=== PATIENT | female | born 2000 | race Caucasian/White ===

== ENCOUNTER → 2021-01-10 15:31 | Outpatient (BNVA) | payer BC, SELFPAY | PROVIDERS: Family Provider Electrodiagnostic Medicine; PCP General Practice; Visit Provider Nurse Practitioner Women's Health | DX: N92.6 Irregular menstruation, unspecified (principal) | CPT/HCPCS: 81025 ==

== ENCOUNTER → 2021-02-11 12:07 | Outpatient (BNVA) | payer BC, SELFPAY | PROVIDERS: Family Provider Electrodiagnostic Medicine; PCP General Practice; Visit Provider Obstetrics & Gynecology | DX: Z34.80 Encounter for supervision of other normal pregnancy, unspecified trimester (principal); Z3A.10 10 weeks gestation of pregnancy | CPT/HCPCS: 80307; 84315; 85027; 86592; 86762; 86787; 86803; 86850; 86900; 87086; 87340; 87806 ==

== ENCOUNTER → 2021-02-19 15:30 | Outpatient (BNVA) | payer BC, SELFPAY | PROVIDERS: Family Provider Electrodiagnostic Medicine; PCP General Practice; Visit Provider Obstetrics & Gynecology | DX: Z34.80 Encounter for supervision of other normal pregnancy, unspecified trimester (principal) | CPT/HCPCS: 84315; 87491; 87591; 88175 ==

== ENCOUNTER 2021-02-26 09:30 | Emergency (ER) | payer BC, SELFPAY ==
[2021-02-26 10:33] VITALS: BP 114/78; PULSE 95; RESP 17; TEMP 37.1; O2SAT 95; BMI 25.9
--- NOTE | 2021-02-26 11:20 | US_ITS ---
WS: [id number] EARLY OBSTETRICAL ULTRASOUND (<14 WEEKS). HISTORY: transabdominal us only 13 weeks, tightness and pressure low abdomen. COMPARISON: None available. Single intrauterine gestational sac is identified. Cardiac activity at 160 BPM. [place]-rump length genna sures 5.8 cm which corresponds to a gestation of 12w2d. Normal-appearing yolk sac and amnion demonstr ated. No subchorionic hemorrhage. No free fluid. Normal size ovaries with no mass. Small corpus luteum associated with the LEFT ovary. Normal vascular ity in each ovary. Cervix is closed measuring 4.2 cm. US/US OB limited 36561 IMPRESSION: 1. Single intrauterine gestation of 12 weeks 2 days with an EDC of 09/08/2021. 2. Normal amount of amniotic fluid. 3. Normal cervix. 4. Normal cardiac activity.
--- NOTE | 2021-02-26 11:23 | ECG_ITS ---
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 Measurements Intervals [place] Rate: 89 P: 65 CO: 148 QRS: 81 QRSD: 89 T: 45 QT: 333 QTc: 406 Interpretive Statements SINUS RHYTHM WITH SINUS ARRHYTHMIA No previous ECG available for comparison Electronically Signed On 02-26-2021 20:25:18 CDT by Catherine Currie M.D. [id number]
--- NOTE | 2021-02-26 11:25 | W.ED.CHESTPA ---
HPI - Chest Pain General: Chief Complaint: Chest Pain Stated Complaint: Chest pain, 13 wk preg. Time Seen by Provider: 02/26/21 11:04 History of Present Illness: HPI narrative: Patient is a 20-year-old G1, P0 at 13 weeks based on prior ultrasound presenting to the emergency room with acute onset of sharp chest pain x4 days. Patient reports sudden onset of left-sided lateral chest pain 3 days ago that has since then involved on the right side. Episode of chest pain lasting for 15 seconds at a time. Patient has noticed noticed multiple episodes today. Patient denies any shortness of breath, exertional chest pain, cough, hemoptysis, recent exposure to Covid contact. Patient denies any family history of VTE, leg swelling, recent immobilization or surgery. Per mom, patient was born with an innocent murmur. Patient has denies any other medical issues in occluding vaginal bleeding, dysuria, flank pain, headache, vision changes or increased vomiting. Review of Systems Narrative: Constitutional: No fever, no chills. HEENT: No vision changes CV: +chest pain, no palpitations PULM: No cough, nodyspnea. GI: No abdominal pain, no N/V/D. : No dysuria MSKEL: No muscle pain SKIN: No new rashes, no lesions. NEURO: No headache, no focal weakness. HEME: No visible bruises PSYCH: Normal mood PFSH ED PFSH: Medical History No pertinent past medical history Denies diabetes, asthma, hypertension, seizures, DVT/PE PCP: Dr. Patel Surgical History History of tonsillectomy age 7 S/P tooth extraction [place] teeth removal Family History Grandmother Diabetes maternal and paternal Stroke paternal Denies family history of Colon cancer Ovarian cancer Clotting disorder Heart disease Hyperlipidemia Breast cancer Anesthesia complication Bleeding disorder Hypertension Uterine cancer Thyroid condition Female Reproductive History: Date of last menstrual period: 11/27/20 Physical Exam Narrative: EXAM NARRATIVE: Head: Atraumatic, normocephalic Eyes: PERRL, EOMI, conjunctiva without injection ENT: Throat without erythema, lesions or exudate, MMM NECK: Supple, trachea midline, no JVD LUNGS: LCTA CV: RRR, S1,S2, no murmurs, rubs, gallops. 2+ peripheral pulses in UEs ABDOMEN: Soft, nontender, nondistended, BS x4, no rigidity, no guarding, no rebound EXTREMITY: Normal ROM, no pitting edema, no calf tenderness to palpation SKIN: No rash or erythema NEURO: Awake and alert. No focal motor deficits. PSYCH: Normal mood and affect. Course Vital Signs: Vital signs: Vital Signs Temperature 98.8 F 02/26/21 10:33 Pulse Rate 88 02/26/21 14:44 Respiratory Rate 16 02/26/21 14:44 Blood Pressure 110/82 02/26/21 14:44 Pulse Oximetry 98 02/26/21 14:44 MDM - Chest Pain MDM Narrative: Medical decision making narrative: ED Course: [21]yo at 13 weeks by US presenting to the ED with evaluation of new onset sharp chest pain lasting for a fwe seconds at a time x 4 days. HDS, pulse 2+ radially bilaterally, no signs of fluid overload, AAOx3, neuro exam intact. Given History and Exam today I have no suspicion for ACS, Pneumothorax, Pneumonia, Pulmonary Embolus, Tamponade, Aortic Dissection or other emergent problems as a cause for this presentation. Given hx and sudden onset of sharp chest pain, will evaluate for PE with YEARS alogrithm Workup: ECG, CXR, CBC, BMP, Troponin, Dimer Interventions: Tylenol, IVF EKG NSR, RR of 89, CO/QRs/QT wnl, no ST-T wave changes, no ectopy D-dimer within normal limits. Chest x-ray not showing signs of acute pathologies. At the present time, I doubt this is ACS, aortic dissection, PE, C related cardiomyopathy, or other issues. UA 4+ bacteria with 10-15 WBC, will treat as complicated UTI during Rx tylenol and cephalexin BID x 10 days Position: Discharged. Patient is given strict return precaution for any worsening pain, hemoptysis, focal neurological deficit, new weakness, new or concerning complaints. Lab Data: Labs: Lab Results 02/26/21 02/26/21 02/26/21 Range/Units 11:48 11:48 11:48 WBC 5.3 (4.0-10.0) 10^3/ uL RBC 4.95 (4.1-5.3) 10^6/u L Hgb 13.3 (11.5-15.3) g/dL Hct 41.3 (37.0-47.0) % MCV 83.4 (81-99) fL MCH 26.9 L (28.0-34.0) pg MCHC 32.2 (30.0-36.0) g/dL RDW 13.0 (12.1-15.1) % Plt Count 310 (130-400) 10^3/c mm MPV 10.7 H (7.4-10.4) fL Neut % (Auto) 72.7 % Lymph % (Auto) 22.1 % [place] % (Auto) 4.0 % Eos % (Auto) 0.4 % Baso % (Auto) 0.4 % Neut # (Auto) 3.83 (1.8-7.7) 10^3/u L Lymph # (Auto) 1.2 (0.8-4.8) 10^3/u L [place] # (Auto) 0.2 (0.2-0.9) 10^3/u L Eos # (Auto) 0.0 (0.0-0.8) 10^3/u L Baso # (Auto) 0.0 (0.0-0.1) 10^3/u L Nucleated RBC % (a uto) 0 % Nucleated RBCs # 0.0 /100WBC D-Dimer 0.38 (0-0.59) ug/mIFE U Sodium 134 L (136-145) mmol/L Potassium 3.9 (3.5-5.1) mmol/L Chloride 100 (98-107) mmol/L Carbon Dioxide 20 L (22-29) mmol/L Anion Gap 17.9 (5-19) BUN 5 L (6-20) mg/dL Creatinine 0.4 L (0.5-0.9) mg/dL GFR Calculation 199.6 H (90-130) mL/min Glucose 79 (65-115) mg/dL Calculated Osmolal ity 274 L (285-295) mOsm/k g Calcium 9.3 (8.5-10.5) mg/dL Total Bilirubin 0.4 (0.15-1.2) mg/dL AST 15 (0-32) U/L ALT 26 (0-33) U/L Alkaline Phosphata se 53 (35-105) IU/L Troponin T Gen 5 n g/L (0-10) ng/L Total Protein 6.7 (6.6-8.7) g/dL Albumin 4.4 (3.5-5.2) g/dL Globulin 2.3 (1.3-4.6) g/dL Lipase 37 (13-60) U/L Ser , [place] 584[address].00 mIU/mL Urine Color (Yellow) Urine Appearance (CLEAR) Urine pH (5-7) Ur Specific Gravit y (1.005-1.030) Urine Protein (Negative) Urine Glucose (UA) (Normal) Urine Ketones (Negative) Urine Blood (Negative) Urine Nitrate (Negative) Urine Bilirubin (Negative) Urine Urobilinogen (Negative) mg/dL Ur Leukocyte Lena ase (Negative) Urine RBC (0-2) /hpf Urine WBC (0-5) /hpf Ur Squamous Epith Cells (0-5) /hpf Amorphous Sediment Urine Bacteria (NONE) /hpf Urine Mucus /hpf 02/26/21 02/26/21 Range/Units 11:48 12:45 WBC (4.0-10.0) 10^3/ uL RBC (4.1-5.3) 10^6/u L Hgb (11.5-15.3) g/dL Hct (37.0-47.0) % MCV (81-99) fL MCH (28.0-34.0) pg MCHC (30.0-36.0) g/dL RDW (12.1-15.1) % Plt Count (130-400) 10^3/c mm MPV (7.4-10.4) fL Neut % (Auto) % Lymph % (Auto) % [place] % (Auto) % Eos % (Auto) % Baso % (Auto) % Neut # (Auto) (1.8-7.7) 10^3/u L Lymph # (Auto) (0.8-4.8) 10^3/u L [place] # (Auto) (0.2-0.9) 10^3/u L Eos # (Auto) (0.0-0.8) 10^3/u L Baso # (Auto) (0.0-0.1) 10^3/u L Nucleated RBC % (a uto) % Nucleated RBCs # /100WBC D-Dimer (0-0.59) ug/mIFE U Sodium (136-145) mmol/L Potassium (3.5-5.1) mmol/L Chloride (98-107) mmol/L Carbon Dioxide (22-29) mmol/L Anion Gap (5-19) BUN (6-20) mg/dL Creatinine (0.5-0.9) mg/dL GFR Calculation (90-130) mL/min Glucose (65-115) mg/dL Calculated Osmolal ity (285-295) mOsm/k g Calcium (8.5-10.5) mg/dL Total Bilirubin (0.15-1.2) mg/dL AST (0-32) U/L ALT (0-33) U/L Alkaline Phosphata se (35-105) IU/L Troponin T Gen 5 n g/L 6 (0-10) ng/L Total Protein (6.6-8.7) g/dL Albumin (3.5-5.2) g/dL Globulin (1.3-4.6) g/dL Lipase (13-60) U/L Ser , [place] i-Qnt mIU/mL Urine Color Yellow (Yellow) Urine Appearance Cloudy (CLEAR) Urine pH 6 (5-7) Ur Specific Gravit y 1.020 (1.005-1.030) Urine Protein Neg (Negative) Urine Glucose (UA) Norm (Normal) Urine Ketones 2+ H (Negative) Urine Blood Neg (Negative) Urine Nitrate Negative (Negative) Urine Bilirubin Neg (Negative) Urine Urobilinogen Norm (Negative) mg/dL Ur Leukocyte [place] 2+ H (Negative) Urine RBC 0-4 H (0-2) /hpf Urine WBC 10-15 H (0-5) /hpf Ur Squamous Epith Cells 0-4 H (0-5) /hpf Amorphous Sediment Not Reportable Urine Bacteria 4+ H (NONE) /hpf Urine Mucus 2+ /hpf Imaging Data^: CXR: Radiologist's impression: [email or web address] [address]XGao ReportSigned Patient: Nata Morton #: [id number]: 2000Acct#:[id number]/Sex: Date: 02/26/21Loc: ERRoom/Bed:Attending Dr: Ordering Provider/Ordering MD: Tracy Muñoz MD Date of Service: 02/26/21 Procedure(s): XR chest 2V* 12831 Accession Number(s): [id number] Report Number: [id number] WS: [id number] Chest 2 views, 02/26/2021 Clinical Data: rule out pna Comparison: None. Findings: No nodules, masses or effusions are seen. The heart is normal. The pulmonary vascularity is not increased. No pneumonia or pneumothorax is seen. XR/XR chest 2V* 34349 Impression: Negative chest. Dictated By:Winsome Moon MDSigned By:Winsome Moon MDSigned Date/Time:02/26/21 1312DD/ 1312 [facility], [place] [address]Vhzvielnck ReportSigned Patient: Nata Morton #: [id number]: 2000Acct#:[id number]/Sex: Date: 02/26/21Loc: ERRoom/Bed:Attending Dr: Ordering Provider/Ordering MD: Tracy Muñoz MD Date of Service: 02/26/21 Procedure(s): US OB limited 78341 Accession Number(s): [id number] Report Number: [id number] Other Imaging: Radiologist's impression: [facility], [place] [address]QRpk ReportSigned Patient: Nata Morton #: [id number]: 2000Acct#:[id number]/Sex: Date: 02/26/21Loc: ERRoom/Bed:Attending Dr: Ordering Provider/Ordering MD: Tracy Muñoz MD Date of Service: 02/26/21 Procedure(s): XR chest 2V* 11748 Accession Number(s): [id number] Report Number: [id number] WS: [id number] Chest 2 views, 02/26/2021 Clinical Data: rule out pna Comparison: None. Findings: No nodules, masses or effusions are seen. The heart is normal. The pulmonary vascularity is not increased. No pneumonia or pneumothorax is seen. XR/XR chest 2V* 60532 Impression: Negative chest. Dictated By:Winsome Moon MDSigned By:Winsome Moon MDSigned Date/Time:02/26/21 1312DD/ [address] [address]Vpyrspcmqe ReportSigned Patient: Nata Morton #: [id number]: 2000Acct#:[id number]/Sex: 20 / FADM Date: 02/26/21Loc: ERRoo/Bed:Attending Dr: Ordering Provider/Ordering MD: Tracy Muñoz MD Date of Service: 02/26/21 Procedure(s): US OB limited 41170 Accession Number(s): [id number] Report Number: [id number] Discharge Plan Discharge Patient Disposition: Home Clinical Impression: Chest pain, UTI (urinary tract infection) during Condition: Stable Prescriptions: New acetaminophen 500 mg tablet 500 mg PO Q6H PRN (Reason: ch) 5 Days Qty: 20 RF: 0 cephalexin 500 mg capsule 500 mg PO BID 10 Days Qty: 20 RF: 0 No Action promethazine 25 mg tablet 25 mg PO Q6H PRN (Reason: nausea and vomiting) Qty: 30 RF: 0 Gummies 400 mcg-35 mg- 25 mg-5 mg tablet,chewable 1 tab PO DAILY RF: 0 Discharge Orders: Discharge ED (Routine); Ordered 02/26/21 Ordered By: Tracy Muñoz Referrals: Denis Patel DO [Primary Care Provider] - Discharge Diet: Advance as tolerated Discharge Activity: Resume usual activity Patient Instructions: Chest Pain (ED) Coding Level of Care Code ED Compliance Professional for Chg Jennifer
[2021-02-26 12:06] LABS: Basophils % 0.4 %; Eosinophils % 0.4 %; Hematocrit 41.3 % (37.0-47.0); Hemoglobin 13.3 g/dL (11.5-15.3); Lymphocytes # 1.2 10^3/uL (0.8-4.8); Lymphocytes % 22.1 %; Mean Corpuscular HGB Conc 32.2 g/dL (30.0-36.0); Mean Corpuscular Hemoglobin 26.9 pg (28.0-34.0); Mean Corpuscular Volume 83.4 fL (81-99); Mean Platelet Volume 10.7 fL (7.4-10.4); Monocytes # 0.2 10^3/uL (0.2-0.9); Neutrophils # 3.83 10^3/uL (1.8-7.7); Neutrophils % 72.7 %; Nucleated Red Blood Cells % 0 %; Platelet Count 310 10^3/cmm (130-400); Red Blood Count 4.95 10^6/uL (4.1-5.3); White Blood Count 5.3 10^3/uL (4.0-10.0)
[2021-02-26 12:22] LABS: D Dimer 0.38 ug/mIFEU (0-0.59)
[2021-02-26] MEDS: acetaminophen 500 mg Tablet PO (12:30)
[2021-02-26] MEDS: sodium chloride 0.9% 500 ML IV (12:30)
--- NOTE | 2021-02-26 12:42 | XR_ITS ---
WS: [id number] Chest 2 views, 02/26/2021 Clinical Data: rule out pna Comparison: None. Findings: No nodules, masses or effusions are seen. The heart is normal. The pulmonary vascularity is not increased. No pneumonia or pneumothorax is seen. XR/XR chest 2V* 66545 Impression: Negative chest.
[2021-02-26 12:45] LABS: Troponin T (5th) Once 6 ng/L (0-10)
[2021-02-26 12:50] LABS: Alanine Aminotransferase 26 U/L (0-33); Albumin Level 4.4 g/dL (3.5-5.2); Alkaline Phosphatase 53 IU/L (35-105); Anion Gap 17.9 (5-19); Aspartate Amino Transferase 15 U/L (0-32); Blood Urea Nitrogen 5 mg/dL (6-20); Calcium 9.3 mg/dL (8.5-10.5); Carbon Dioxide 20 mmol/L (22-29); Chloride 100 mmol/L (98-107); Globulin 2.3 g/dL (1.3-4.6); Glomerular Filtration Rate 199.6 mL/min (90-130); Glucose 79 mg/dL (65-115); Lipase 37 U/L (13-60); Osmolality Calculated 274 mOsm/kg (285-295); Potassium 3.9 mmol/L (3.5-5.1); Sodium 134 mmol/L (136-145); Total Bilirubin 0.4 mg/dL (0.15-1.2); Total Protein 6.7 g/dL (6.6-8.7)
[2021-02-26 12:58] LABS: Add Urine Microscopic? YES; Bilirubin Urine Neg (Negative); Blood Urine Neg (Negative); Glucose Urine UA Norm (Normal); Ketones Urine 2+ (Negative); Leukocyte Esterase Urine 2+ (Negative); Nitrate Urine Negative (Negative); Protein Urine Neg (Negative); Urine Appearance Cloudy (CLEAR); Urine Color Yellow (Yellow); Urobilinogen Urine Norm (Negative); pH Urine 6 (5-7)
[2021-02-26 13:08] LABS: Add Urine Culture? Yes; Bacteria Urine 4+ /hpf; Mucus Urine 2+ /hpf; RBC Urine 0-4 /hpf (0-2); Squamous Epithelial Cell Urine 0-4 /hpf (0-5)
[2021-02-26 14:44] VITALS: BP 110/82; PULSE 88; RESP 16; O2SAT 98
== END 2021-02-26 14:45 | disposition home or self-care (01) ==
PROVIDERS: Emergency Provider Emergency Medicine; PCP Electrodiagnostic Medicine
DX: O26.891 Other specified pregnancy related conditions, first trimester (principal); R07.9 Chest pain, unspecified; O23.41 Unspecified infection of urinary tract in pregnancy, first trimester; Z3A.13 13 weeks gestation of pregnancy
CPT/HCPCS: 71046; 76815; 80053; 81001; 83690; 84484; 84702; 85025; 85378; 87086; 93005; 96360; 99283; J7040

== ENCOUNTER → 2021-04-11 10:40 | Outpatient (BNVA) | payer SELFPAY | PROVIDERS: PCP Electrodiagnostic Medicine; Visit Provider Obstetrics & Gynecology | DX: R39.15 Urgency of urination (principal); R39.89 Other symptoms and signs involving the genitourinary system | CPT/HCPCS: 81000; 87086 ==

== ENCOUNTER → 2021-06-13 12:08 | Outpatient (BNVA) | payer BC, SELFPAY | PROVIDERS: PCP Electrodiagnostic Medicine; Visit Provider Nurse Practitioner Women's Health | DX: Z34.80 Encounter for supervision of other normal pregnancy, unspecified trimester (principal) | CPT/HCPCS: 82950; 84315; 85027 ==

== ENCOUNTER → 2021-08-06 10:44 | Outpatient (BNVA) | payer BC, SELFPAY | PROVIDERS: PCP Electrodiagnostic Medicine; Visit Provider Obstetrics & Gynecology | DX: Z34.90 Encounter for supervision of normal pregnancy, unspecified, unspecified trimester (principal) | CPT/HCPCS: 84315; 87081 ==

== ENCOUNTER 2021-08-10 04:56 | Outpatient (CLI) | payer BC, SELFPAY ==
[2021-08-10] VITALS (10 sets, daily range): BP systolic 121–129; BP diastolic 82–93; PULSE 110–151; RESP 16; TEMP 36.7
[2021-08-10] MEDS: acetaminophen 325 mg Tablet 650 MG PO (05:51)
== END 2021-08-10 07:38 | disposition home or self-care (01) ==
LOC: OPOB 04:59 → OBGYN 04:59
PROVIDERS: PCP Electrodiagnostic Medicine; Visit Provider Obstetrics & Gynecology
DX: O26.899 Other specified pregnancy related conditions, unspecified trimester (principal); Z3A.00 Weeks of gestation of pregnancy not specified; R10.2 Pelvic and perineal pain
CPT/HCPCS: 59025; 99211

== ENCOUNTER 2021-08-10 14:07 | Outpatient (CLI) | payer BC, SELFPAY ==
[2021-08-10] VITALS (36 sets, daily range): BP systolic 115–143; BP diastolic 70–83; PULSE 123–161; RESP 16; TEMP 37–37.8; O2SAT 96–100; BMI 30.2
[2021-08-10] MEDS: lactated ringers 1,000 ML 999 ML IV (14:43)
[2021-08-10 14:50] LABS: Add Urine Culture? No; Bacteria Urine TRACE /hpf; Bilirubin Urine Neg (Negative); Blood Urine Neg (Negative); Glucose Urine UA Norm (Normal); Ketones Urine 2+ (Negative); Leukocyte Esterase Urine Negative (Negative); Nitrate Urine Negative (Negative); Protein Urine Neg (Negative); Squamous Epithelial Cell Urine 0-4 /hpf (0-5); Urine Appearance Clear (CLEAR); Urine Color Yellow (Yellow); Urobilinogen Urine Norm (Negative); WBC Urine RARE /hpf (0-5); pH Urine 7 (5-7)
[2021-08-10] MEDS: acetaminophen 325 mg Tablet 650 MG PO (15:12)
[2021-08-10 16:28] LABS: Adenovirus Not Detected (NOT DETECT); Chlamydia Pneumoniae Not Detected (NOT DETECT); Coronavirus 229E,HKU1,NL63,OC4 Not Detected (NOT DETECT); Human Metapneumovirus Not Detected (NOT DETECT); Human Rhinovirus/Enterovirus Not Detected (NOT DETECT); Influenza A Not Detected (NOT DETECT); Influenza A H1 Not Detected (NOT DETECT); Influenza A H1-2009 Not Detected (NOT DETECT); Influenza A H3 Not Detected (NOT DETECT); Influenza B Not Detected (NOT DETECT); Mycoplasma Pneumoniae Not Detected (NOT DETECT); Parainfluenza Virus Type 1 Not Detected (NOT DETECT); Parainfluenza Virus Type 2 Not Detected (NOT DETECT); Parainfluenza Virus Type 3 Not Detected (NOT DETECT); Parainfluenza Virus Type 4 Not Detected (NOT DETECT); Respiratory Syncytial Virus A Not Detected (NOT DETECT); Respiratory Syncytial Virus B Not Detected (NOT DETECT); SARS-COV-2 Detected (NOT DETECT)
== END 2021-08-10 17:30 | disposition home or self-care (01) ==
LOC: OPOB 14:07 → OBGYN 14:08
PROVIDERS: PCP Electrodiagnostic Medicine; Visit Provider Obstetrics & Gynecology
DX: O26.899 Other specified pregnancy related conditions, unspecified trimester (principal); Z3A.00 Weeks of gestation of pregnancy not specified; R50.9 Fever, unspecified; R10.9 Unspecified abdominal pain
CPT/HCPCS: 59025; 81001; 87635; 99211

== ENCOUNTER 2021-09-02 05:38 | Inpatient (IN) | payer BC, SELFPAY ==
[2021-09-01] VITALS (21 sets, daily range): BP systolic 120–132; BP diastolic 72–91; PULSE 71–107; TEMP 35.9–36.9; O2SAT 95–97; BMI 30.2
[2021-09-01] MEDS: lactated ringers 1,000 ML 999 ML IV (19:47)
[2021-09-01 20:10] LABS: Basophils % 0.1 %; Eosinophils % 0.1 %; Hematocrit 34.7 % (37.0-47.0); Hemoglobin 11.6 g/dL (11.5-15.3); Lymphocytes # 1.7 10^3/uL (0.8-4.8); Lymphocytes % 22.9 %; Mean Corpuscular HGB Conc 33.4 g/dL (30.0-36.0); Mean Corpuscular Hemoglobin 28.2 pg (28.0-34.0); Mean Corpuscular Volume 84.4 fl (81-99); Mean Platelet Volume 13.2 fL (7.4-10.4); Monocytes # 0.3 10^3/uL (0.2-0.9); Monocytes % 4.1 %; Neutrophils # 5.42 10^3/uL (1.8-7.7); Neutrophils % 72.3 %; Nucleated Red Blood Cells % 0 %; Platelet Count 228 10^3/cmm (130-400); Red Blood Count 4.11 10^6/uL (4.1-5.3); Red Cell Distribution Width 13.7 % (12.1-15.1); White Blood Count 7.5 10^3/uL (4.0-10.0)
[2021-09-01] MEDS: dextrose 5%-lactated ringers 1,000 ML 125 ML IV (20:42)
[2021-09-01] MEDS: miSOPROStol 100 mcg tablet 25 MCG VAGINAL (21:00)
[2021-09-02] VITALS (87 sets, daily range): BP systolic 99–164; BP diastolic 55–131; PULSE 61–113; RESP 16–18; TEMP 35.8–36.8; O2SAT 94–98
--- NOTE | 2021-09-02 06:20 | P.ANESASSM_ITS ---
Pre-Anesthetic Assessment Height/Weight: Height 1.57 m Weight 74.843 kg Temp Pulse BP Pulse Ox 97.2 F L 78 153/85 97 09/02/21 04:26 09/02/21 06:00 09/02/21 06:00 09/01/21 19:37 Preop Diagnosis: labpr pain epidural Familial anesthetic complications: none Was Beta Rhoda taken within 24 hours: N/A Was Clonidine taken within 24 hours: N/A Social No alcohol and No tobacco Exam alert, oriented x 3, clear to auscultation bilaterally and regular rate & rhythm Airway Submandibular: within normal limits Cervical ROM: within normal limits Mallampati: Class II Dentition: full Pulmonary Asthma (as a child but has resolved) CV/HEM Murmur (as a child that has resolved) None reported Hepatic None reported GI Gastroesophageal Reflux Disease Metabolic None reported Musc/skel Scoliosis (some scoliosis per patient as a child but has not been addressed since then) Neuropsych None reported Anesthetic Plan ASA status: 2 Anesthesia: Regional (specify below) Risk of > 500 ml blood loss (7ml/kg in children): No Medications/Allergies Allergies Allergy/AdvReac Type Severity Reaction Status Date / Time No Known Allergies Allergy Verified 08/27/21 10:27 Current Medications Generic Name Dose Route Start Last Admin Trade Name Freq PRN Reason Stop Dose Admin Dextrose/Lactated Ringer's 1,000 mls @ 125 mls/hr 09/01/21 19:27 09/01/21 20:42 Dextrose 5%-Lactated Ringers IV 125 mls/hr .Q8H PRN Administration [facility] Medical History No pertinent past medical history Denies diabetes, asthma, hypertension, seizures, DVT/PE PCP: Dr. Patel Surgical History History of tonsillectomy age 7 S/P tooth extraction [place] teeth removal Family History Grandmother Diabetes maternal and paternal Stroke paternal Denies family history of Colon cancer Ovarian cancer Clotting disorder Heart disease Hyperlipidemia Breast cancer Anesthesia complication Bleeding disorder Hypertension Uterine cancer Thyroid condition Female Reproductive History Date of last menstrual period: 11/28/20 : 2 Data Anesthesia : 09/01/21 19:00 Short CBC 09/01/21 Range/Units 19:00 WBC 7.5 (4.0-10.0) 10^3/uL Hgb 11.6 (11.5-15.3) g/dL Hct 34.7 L (37.0-47.0) % MCV 84.4 (81-99) fl Plt Count 228 (130-400) 10^3/cmm Neut % (Auto) 72.3 % Neut # (Auto) 5.42 (1.8-7.7) 10^3/uL Cardiac Studies: No Data to Display
--- NOTE | 2021-09-02 06:40 | PM.OPHPUD ---
Labor & Delivery H&P Update Date of Procedure: September 02, 2021 Date H&P Performed: 08/27/21 H&P update information: I have reviewed H&P completed within last 30 days, I have examined patient prior to procedure and Changes to prior documentation as noted here Changes to previous documentation: Patient is 2 cm 60% and -3 station Admission Diagnosis: Preop diagnosis: labpr pain
--- NOTE | 2021-09-02 06:53 | ANES.PROC ---
Anesthesia Procedures Procedure/Date: 09/02/21 epidural Procedure Narrative: epidural complete, bolus given, epidural pump initiated with GENERAL INTERNAL MEDICINE PHYSICIAN education given, vitals taken during procedure using OBIX system and satisfactory throughout, patient admits to decrease pain, report of procedure to OB RN Epidural: Time Out Performed: Yes Consents Signed: Procedure Consent Consent: requested by attending/covering physician, from patient, risks and benefits reviewed and patient agrees to proceed Lumbar Level: L3-L4 Epidural position: sitting Epidural procedure: sterile prep of area, 1% lidocaine to numb the area (3 mL), 18 g needle, negative for paresthesia passed, neg for paresthesia, test dose given, 1.5% xylocaine 1:200k epi (5 mL), 0.2% Ropivacaine bolus ml (5 mL), placed PCEA, no systemic response, sterile dressing applied, L.U.D. no apparent complications and 0.2% Ropiavacaine @ mls/hr (13 mL/hr)
[2021-09-02] MEDS: oxytocin 30 UNIT/500 ML BAG IV (07:49)
[2021-09-02] MEDS: dextrose 5%-lactated ringers 1,000 ML 125 ML IV (09:15)
--- NOTE | 2021-09-02 13:42 | P.PCNOB_ITS ---
Delivery Note: Date of delivery: September 02, 2021 - PRE-DELIVERY DIAGNOSIS: 20-year-old 2 para 0-0-1-0 at 39 weeks and 4 days gestation elective induction of labor for term GBS negative COVID in the at 34 weeks Varicella nonimmune---declines vaccinations POST-DELIVERY DIAGNOSIS: Vaginal delivery on 09/02/2021 PROCEDURE: Vaginal delivery on 09/02/2021 ANESTHESIA: Epidural anesthesia DELIVERING PHYSICIAN: Daija Bland FACOG PRE-DELIVERY COURSE: Ms. Morton is a 20-year-old 2 para 0-0-1-0 at 39 weeks and 4 days gestation who presented to labor and delivery on 09/01/2021 for scheduled elective induction of labor. She is overall doing well. She denies new complaints. GBS was negative. On examination she was noted to be 1 cm, 70% and -2 station. She had occasional contractions and did not feel this and had a category 1 tracing. Induction was started with Cytotec placed at 9 PM. At 1 AM 4 hours later she was having irregular contractions but felt that they were growing pretty uncomfortable and as a result she was just observed. She had made no cervical change after the 4 hours of Cytotec. She was observed for the next 4 hours and grew increasingly uncomfortable and at about 5 AM on exam she was noted to be 2 to 3 cm, 70% and -2 station. She desired placement of an epidural. On exam at 5:30 AM she was noted to be 3 to 4 cm, 60% and -2 station with a head well applied with contractions every 2 to 5 minutes and a category 1 tracing. Artificial rupture of membranes was performed at this time with clear fluid. She received the epidural was comfortable after this. She remained at 3 cm and so Pitocin was started however tracing became category 2 and Pitocin was stopped after reaching a maximum of 6 mIU. She remained at 3 cm until about 10:30 AM and progressed to 5 cm. She then made rapid cervical change and was 8 cm at 10:55 AM and anterior lip at 11:20 AM and fully dilated at 11:25 AM. She was feeling a lot of pressure. During this time of rapid cervical change she had some late decelerations and during this time she was given oxygen position changes IV fluid bolus and Pitocin was turned off. Once she reached 8 cm tracing returned to been category 1. She was then set up in lithotomy position ready to push. DELIVERY NOTE: She was set up in lithotomy position and was pushing effectively. She was noted to be +3 station and continued pushing well. The head delivered in MIL position, no nuchal cord was present. The shoulders and rest of the body followed with her next push. The baby's mouth and nose were suctioned and the baby was placed on the mother's belly. Once cord pulsations stopped the cord was clamped and cut. The placenta delivered spontaneously intact with membranes and was discarded. The fundus was noted to be firm and well contracted. The vagina and cervix were inspected and no cervical or sulcal lacerations were noted. The perineum showed a first-degree perineal laceration which was repaired with 3-0 Vicryl in a continuous interlocking fashion. Good hemostasis and reapproximation was obtained. Baby delta, Sanchez born at 1:04 PM on 09/02/2021 with 9/9, weighing 6 pounds 8 ounces, 2940 g, 20 inches long. Placenta was delivered spontaneously intact with membranes at 1:10 PM.. Cotyledons were intact , centrally inserted umbilical cord with 3 vessels noted. Estimated blood loss 250 mL. Complications-none, both baby and mother were left to recover in a stable condition This documentation was created by [employer] computer equipment repairer software (known for inherent computer equipment repairer error). Every effort was made to assure accuracy of computer equipment repairer. Any obvious errors or omissions should be clarified with the author of the document. History History History 2 Term 1 Miscarriages/Ectopic 1 0 Living Children 1 Other History: G2P 1011 SAB x 1 X 1 1--->2015, Early miscarriage at age 14 with a positive home test. 2---> 09/02/2021---> full-term vaginal delivery of a baby boy,(Sanchez), weighing [address] Bland [place] [facility] [place] 12 are induction at 39 weeks and 5 days gestation. First-degree perineal tear. No complications Coding Level of Care Code Acute Administrative Office Assistant for [facility] Jennifer
--- NOTE | 2021-09-02 15:31 | PC.NURSE ---
1515 PT UP TO BATHROOM, INSTRUCTED ON PERICARE THEN AMBULATED TO OB9, ORIENTED TO ROOM, CALL LIGHT SYSTEM AND BED CONTROLS. WILL GO OVER PP PACK AFTER MAKENZIE CARMONA RN IS DONE HELPING HER WITH .
[2021-09-02] MEDS: lanolin oint 7 gm 1 APPLIC TOPICAL (15:37)
[2021-09-02] MEDS: benzocaine-menthol 78 gm Canister 1 SPRAY TOPICAL (15:37)
[2021-09-02] MEDS: ibuprofen 800 mg tablet PO ×2 (15:38→20:39)
[2021-09-02] MEDS: docusate sodium 100 mg Capsule PO (20:39)
[2021-09-03 01:23] LABS: Hematocrit 30.7 % (37.0-47.0); Hemoglobin 10.1 g/dL (11.5-15.3); Mean Corpuscular HGB Conc 32.9 g/dL (30.0-36.0); Mean Platelet Volume 12.2 fL (7.4-10.4); Platelet Count 166 10^3/cmm (130-400); Red Blood Count 3.61 10^6/uL (4.1-5.3); Red Cell Distribution Width 14.1 % (12.1-15.1); White Blood Count 12.5 10^3/uL (4.0-10.0)
[2021-09-03 04:16] VITALS: BP 110/65; PULSE 73; RESP 16; O2SAT 96
[2021-09-03] MEDS: docusate sodium 100 mg Capsule PO (08:38)
[2021-09-03] MEDS: ibuprofen 800 mg tablet PO (08:38)
[2021-09-03] MEDS: prenatal vitamin Capsule 1 CAP PO (08:38)
[2021-09-03 11:05] VITALS: BP 126/76; PULSE 74; RESP 16; TEMP 36.6; O2SAT 98
--- NOTE | 2021-09-03 12:20 | PM.OBGYDC ---
Discharge Providers ENVIRONMENTAL PROJECT MANAGER Date of Admission: 09/02/21 05:38 Date of Discharge: 09/03/21 Attending Provider at Admission: Daija James MD Attending Provider at Discharge: Daija James MD PRE-DELIVERY DIAGNOSIS: 20-year-old 2 para 0-0-1-0 at 39 weeks and 4 days gestation elective induction of labor for term GBS negative COVID in the at 34 weeks Varicella nonimmune---declines vaccinations POST-DELIVERY DIAGNOSIS: Vaginal delivery on 09/02/2021 PROCEDURE: Vaginal delivery on 09/02/2021 ANESTHESIA: Epidural anesthesia DELIVERING PHYSICIAN: Daija Bland FACOG PRE-DELIVERY COURSE: Ms. Morton is a 20-year-old 2 para 0-0-1-0 at 39 weeks and 4 days gestation who presented to labor and delivery on 09/01/2021 for scheduled elective induction of labor.? She is overall doing well.? She denies new complaints.? GBS was negative.? On examination she was noted to be 1 cm, 70% and -2 station.? She had occasional contractions and did not feel this and had a category 1 tracing.? Induction was started with Cytotec placed at 9 PM.? At 1 AM 4 hours later she was having irregular contractions but felt that they were growing pretty uncomfortable and as a result she was just observed.? She had made no cervical change after the 4 hours of Cytotec.? She was observed for the next 4 hours and grew increasingly uncomfortable and at about 5 AM on exam she was noted to be 2 to 3 cm, 70% and -2 station.? She desired placement of an epidural.? On exam at 5:30 AM she was noted to be 3 to 4 cm, 60% and -2 station with a head well applied with contractions every 2 to 5 minutes and a category 1 tracing.? Artificial rupture of membranes was performed at this time with clear fluid.? She received the epidural was comfortable after this.? She remained at 3 cm and so Pitocin was started however tracing became category 2 and Pitocin was stopped after reaching a maximum of 6 mIU.? She remained at 3 cm until about 10:30 AM and progressed to 5 cm.? She then made rapid cervical change and was 8 cm at 10:55 AM and anterior lip at 11:20 AM and fully dilated at 11:25 AM.? She was feeling a lot of pressure.? During this time of rapid cervical change she had some late decelerations and during this time she was given oxygen position changes IV fluid bolus and Pitocin was turned off.? Once she reached 8 cm tracing returned to been category 1.? She was then set up in lithotomy position ready to push. DELIVERY? NOTE: She was set up in lithotomy position and was pushing effectively. She was noted to be? +3 station and continued pushing well. The head delivered in MIL position, no nuchal cord was present. The shoulders and rest of the body followed with her next push. The baby's mouth and nose were suctioned and the baby was placed on the mother's belly.? Once cord pulsations stopped the cord was clamped and cut.? The placenta delivered spontaneously intact with membranes and was discarded. The fundus was noted to be firm and well contracted. The vagina and cervix were inspected and no cervical or sulcal lacerations were noted.? The perineum showed a first-degree perineal laceration which was repaired with 3-0 Vicryl in a continuous interlocking fashion.? Good hemostasis and reapproximation was obtained. Baby boy, Sanchez born at 1:04 PM on 09/02/2021 with 9/9, weighing 6 pounds 8 ounces, 2940 g, 20 inches long. Placenta was delivered spontaneously intact with membranes at 1:10 PM.. Cotyledons were intact , centrally inserted umbilical cord with 3 vessels noted. Estimated blood loss 250 mL. Complications-none, both baby and mother were left to recover in a stable condition HOSPITAL COURSE: She underwent an uncomplicated vaginal delivery on 09/02/2021. She did well on day 0 and was ambulating well, tolerating regular diet, voiding freely, passing flatus. She was breast-feeding without difficulty and bonding well with her son. Circumcision was performed on him by Dr. Acharya. Pain was well-controlled with by mouth pain medication. She denied nausea, vomiting, fever, chills, shortness of breath, leg pain. She had moderate vaginal bleeding. On day # 1 she continued to do well with stable vital signs and stable hemoglobin at 10.1. She was discharged home on day 1 in a stable condition, as she desired early discharge. Warning signs for endometritis, mastitis, DVT/PE were reviewed with her. Post delivery activity restrictions were also reviewed with her at all her questions were answered to her satisfaction. She plans on using natural methods for contraception. EXAM AT DISCHARGE: Gen.: No acute distress Heart: S1-S2 heard, regular rate and rhythm Lungs: Clear to auscultation bilaterally Abdomen: Soft, fundus firm below umbilicus, Legs: No calf tenderness, trace bilateral pitting pedal edema. CONDITION AT DISCHARGE: Stable This documentation was created by [employer] astronomy teacher software (known for inherent astronomy teacher error). Every effort was made to assure accuracy of astronomy teacher. Any obvious errors or omissions should be clarified with the author of the document. Primary Care Provider: Denis Patel DO Reason for Visit Reason for Visit: INDUCTION Information Peripartum Data: Delivery Method: Vaginal Physical Exam Urinary Catheter Management: Smith: Cath Placed During This Visit: yes Urinary Catheter Date of Insertion: 09/02/21 Urinary Catheter Time of Insertion: 07:25 History History History 2 Term 1 Miscarriages/Ectopic 1 0 Living Children 1 Other History: G2P 1011 SAB x 1 X 1 1--->2014, Early miscarriage at age 14 with a positive home test. 2---> 09/02/2021---> full-term vaginal delivery of a baby boy,(Sanchez), weighing [address] B[address] at [facility]. 12 are induction at 39 weeks and 5 days gestation. First-degree perineal tear. No complications Discharge Data Studies Completed and Pending Laboratory Results WBC 12.5 10^3/uL (4.0-10.0) H 09/03/21 01:15 RBC 3.61 10^6/uL (4.1-5.3) L 09/03/21 01:15 Hgb 10.1 g/dL (11.5-15.3) L 09/03/21 01:15 Hct 30.7 % (37.0-47.0) L 09/03/21 01:15 MCV 85.0 fl (81-99) 09/03/21 01:15 MCH 28.0 pg (28.0-34.0) 09/03/21 01:15 MCHC 32.9 g/dL (30.0-36.0) 09/03/21 01:15 RDW 14.1 % (12.1-15.1) 09/03/21 01:15 Plt Count 166 10^3/cmm (130-400) 09/03/21 01:15 MPV 12.2 fL (7.4-10.4) H 09/03/21 01:15 Neut % (Auto) 72.3 % 09/01/21 19:00 Lymph % (Auto) 22.9 % 09/01/21 19:00 Mckinley % (Auto) 4.1 % 09/01/21 19:00 Eos % (Auto) 0.1 % 09/01/21 19:00 Baso % (Auto) 0.1 % 09/01/21 19:00 Neut # (Auto) 5.42 10^3/uL (1.8-7.7) 09/01/21 19:00 Lymph # (Auto) 1.7 10^3/uL (0.8-4.8) 09/01/21 19:00 Mckinley # (Auto) 0.3 10^3/uL (0.2-0.9) 09/01/21 19:00 Eos # (Auto) 0.0 10^3/uL (0.0-0.8) 09/01/21 19:00 Baso # (Auto) 0.0 10^3/uL (0.0-0.1) 09/01/21 19:00 Nucleated RBC % (auto) 0 % 09/01/21 19:00 Nucleated RBCs # 0.0 /100WBC 09/01/21 19:00 Vitals Last Vital Signs Temp 97.9 F 09/03/21 11:05 Pulse 74 09/03/21 11:05 Resp 16 09/03/21 11:05 BP 126/76 09/03/21 11:05 Pulse Ox 98 09/03/21 11:05 Discharge Plan Discharge Patient Disposition: Home Condition: Stable Prescriptions: New docusate sodium 100 mg Capsule 100 mg PO BID PRN (Reason: constipation) Qty: 30 0RF ibuprofen 800 mg tablet 800 mg PO Q8H Qty: 30 0RF Discharge Orders: Discharge Order (Routine); Ordered 09/03/21 Ordered By: Daija James Referrals: Daija James MD [Physician] - 10/14/21 10:30 am Discharge Diet: Regular Discharge Activity: Limit activity as instructed Patient Instructions: Ibuprofen (By mouth), Laxative, Stool Softeners (By mouth) (Doculax, Colace, Colace Clear, DSS), Lanolin (On the skin), Depression (DC), and the Working Mom (DC), Expression, Collection and Storage of Breast Milk (DC), and Nipple Soreness (DC), and Breast Engorgement (DC), and Plugged Ducts (DC), How to Increase Your Milk Supply (DC), Preeclampsia and Eclampsia After Delivery (GEN), Breast Care for the Mother (DC), OB Discharge Report, OB Food/Drug Interaction Guide, Opioid Safety, OB Home Care, OB Vaginal Deliveries - [facility], Abnormal Bleeding Activity Restrictions/Additional Instructions: Pelvic rest for 6 weeks, no heavy lifting for 6 weeks Follow-up for 6-week visit with Dr. Bland Discharge Attestations ENVIRONMENTAL PROJECT MANAGER Time Spent in Discharge Care*: greater than 30 min Coding Level of Care Code Acute Lever Miller for Chg Jennifer
--- NOTE | 2021-09-03 13:24 | ANE.PACU2 ---
Inpatient post-anesthesia follow up: Airway intact: Yes Vital signs: Temperature 97.9 F Pulse Rate 74 Respiratory Rate 16 Blood Pressure 126/76 Pulse Oximetry 98 Oxygen Delivery Me thod Room Air Oxygen Flow Rate Fraction of Inspir ed Oxygen Hydration adequate: Yes Nausea and vomiting: No Pain level: 2 Mental status: Baseline
[2021-09-03 15:00] VITALS: BP 132/89; PULSE 82; RESP 16; TEMP 36.4; O2SAT 96
== END 2021-09-03 15:05 | disposition home or self-care (01) | DRG 807 ==
PROVIDERS: Absent Provider Obstetrics & Gynecology; Admitting Provider Obstetrics & Gynecology; PCP Electrodiagnostic Medicine; Visit Provider Obstetrics & Gynecology
DX: O76 Abnormality in fetal heart rate and rhythm complicating labor and delivery (principal); Z37.0 Single live birth; O70.0 First degree perineal laceration during delivery; Z3A.39 39 weeks gestation of pregnancy; Z86.16 Personal history of COVID-19
CPT/HCPCS: 36415; 51702; 59025; 59409; 83986; 85025; 85027; 99211

== ENCOUNTER → 2024-01-18 14:52 | Outpatient (BNVA) | payer SELFPAY | PROVIDERS: PCP Electrodiagnostic Medicine; Visit Provider Nurse Practitioner Women's Health | DX: Z12.4 Encounter for screening for malignant neoplasm of cervix (principal); N92.6 Irregular menstruation, unspecified | CPT/HCPCS: 84402; 84439; 84443; 84702; 88175 ==

== ENCOUNTER 2024-11-15 02:43 | Inpatient (IN) | payer MEDICAID, SELFPAY ==
[2024-11-15] VITALS (18 sets, daily range): BP systolic 105–139; BP diastolic 66–88; PULSE 71–106; RESP 16–17; TEMP 36.7–36.8; O2SAT 96; BMI 32.3
[2024-11-15 03:07] LABS: Basophils % 0.3 %; Eosinophils % 0.3 %; Hematocrit 39.1 % (36-47); Lymphocytes # 3.5 10^3/uL (0.8-4.8); Lymphocytes % 30.4 %; Mean Corpuscular HGB Conc 33.2 g/dL (30-55); Mean Corpuscular Hemoglobin 27.1 pg (27-33); Mean Corpuscular Volume 81.5 fl (85-98); Mean Platelet Volume 11.6 fL (7.4-10.4); Monocytes # 0.4 10^3/uL (0.2-0.9); Monocytes % 3.5 %; Neutrophils # 7.49 10^3/uL (1.8-7.7); Neutrophils % 64.8 %; Nucleated Red Blood Cells % 0 %; Platelet Count 299 10^3/cmm (157-399); Red Cell Distribution Width 13.8 % (12.1-15.1); White Blood Count 11.58 10^3/uL (3.29-11.43)
--- NOTE | 2024-11-15 03:14 | P.HPUD_ITS ---
Labor & Delivery H&P Update Date of Procedure: November 15, 2024 Date H&P Performed: 11/09/24 Changes to previous documentation: The patient is in active labor. Admission Diagnosis: 24-year-old 4 para 1-0-2-1 with an estimated gestational age of 38 weeks presenting in active labor. Planned procedure: Spontaneous vaginal delivery Other information: The patient is a healthy 24-year-old female who has had an unremarkable . She has had consistent care. There have been no complicati ons. Her blood type is O+. Her antibody screen was negative. Her glucose screen was 125. She was GBS positive. Rubella nonimmune. The remainder of her infectious disease profile was within normal limits. She been having contractions a few hours prior to arriving at the hospital. When she arrived to the hospital she was found to be 6 cm dilated. Related Problem List Diagnoses (1) 38 weeks gestation of : (2) Positive GBS test: A&P Assessment and plan (1) 38 weeks gestation of : I anticipate routine labor and vaginal delivery. Status: Acute (2) Positive GBS test: The patient progressed quickly enough that GBS protocol cannot be initiated. Status: Acute PDMP PDMP Reviewed: Not Reviewed
--- NOTE | 2024-11-15 03:18 | PM.DELIVERY ---
Delivery Note: Date of delivery: November 15, 2024 Pre-delivery diagnoses: 24-year-old 4 para 1-0-2-1 at 38 weeks estimated gestational age in active labor Post-delivery diagnoses: Status post spontaneous vaginal delivery Procedure: Spontaneous vaginal delivery Delivering Physician: Seven Platt Estimated blood loss (mL): 50 Pre-Delivery Course: The patient presented to the hospital back sick centimeters dilated and progressing very quickly. She had spontaneous rupture of membranes just prior to delivery of the baby. The nurses quickly worked to get an IV started prior to delivery. The IV was barely initiated at the time of delivery. Delivery: DELIVERY: The patient progressed to complete without difficulty. She delivered a female with a weight of 6 pounds 3 ounces with Apgars of 8, 9. The baby was delivered from the LAURA position and placed on the mother's abdomen. The cord was then clamped and cut. There was a nuchal cord x 1 which was reduced prior to delivery of the anterior shoulder. There was no meconium, but the baby did have a small meconium bowel movement shortly after delivery. The placenta and 3 vessel cord were delivered intact shortly thereafter. The perineum and vaginal vault were carefully examined. A superficial first-degree right vaginal wall tear extending onto the right labia majora was noted. No stitches were necessary. Both the mother and the baby were in stable condition. Post-Delivery Status: Good History History History 4 Term 1 0 Miscarriages/Ectopic 2 Living Children 1 A&P Assessment and plan (1) Spontaneous vaginal delivery: I anticipate routine care. PDMP PDMP Reviewed: Not Reviewed Coding Level of Care Code Acute Code for Chg Fwd Diagnoses Spontaneous vaginal delivery O80
[2024-11-15] MEDS: acetaminophen 325 mg Tablet 650 MG PO (04:00)
[2024-11-15] MEDS: lanolin oint 7 gm 1 APPLIC TOPICAL (07:46)
[2024-11-15] MEDS: docusate sodium 100 mg Capsule PO ×2 (09:05→20:24)
[2024-11-15] MEDS: ibuprofen 800 mg tablet PO ×3 (09:05→20:24)
[2024-11-15] MEDS: PRENATAL VIT NO.130/IRON/FOLIC 1 EACH TABLET PO (09:05)
--- NOTE | 2024-11-15 13:03 | PC.NURSE ---
DFS in room at this time
[2024-11-15 15:24] LABS: Hematocrit 33.6 % (36-47); Mean Corpuscular HGB Conc 32.4 g/dL (30-55); Mean Corpuscular Hemoglobin 26.9 pg (27-33); Mean Platelet Volume 11.8 fL (7.4-10.4); Platelet Count 228 10^3/cmm (157-399); Red Blood Count 4.05 10^6/uL (3.85-5.65); White Blood Count 12.62 10^3/uL (3.29-11.43)
[2024-11-16 05:17] VITALS: BP 116/65; PULSE 72; RESP 16; TEMP 36.6; O2SAT 96
--- NOTE | 2024-11-16 06:47 | PM.OBGYDC ---
Discharge Providers TWISTING FRAME CHANGER Date of Admission: 11/15/24 02:43 Date of Discharge: 11/16/24 Attending Provider at Admission: Seven Platt MD Attending Provider at Discharge: Seven Platt MD Primary Care Provider: Denis Patel DO Diagnoses at Discharge Discharge Diagnosis (1) Spontaneous vaginal delivery: Status: Acute Reason for Visit Reason for Visit: contractions Hospital Course Hospital Course The patient presented to the hospital 6 cm dilated. She progressed to complete, and delivered a baby within an hour of arriving at the hospital. Her delivery was unremarkable. There were no complications. Her course was also been unremarkable. Her pain has been well-controlled. She is breast-feeding well. Her bleeding has been within normal limits. She will be discharged today but will continue to remain with her infant due to GBS positive status with inadequate antibiotic coverage Information Peripartum Data: Infant Delivery Method: Vaginal Physical Exam Narrative: The patient is alert. She appears comfortable. Her heart has a regular rate and rhythm with no murmurs appreciated. Lungs are clear to auscultation bilaterally. Her fundus is firm and below the umbilicus. History History History 4 Term 1 0 Miscarriages/Ectopic 2 Living Children 1 Discharge Data Studies Completed and Pending Laboratory Results WBC 12.62 10^3/uL (3.29-11.43) H 11/15/24 15:08 RBC 4.05 10^6/uL (3.85-5.65) 11/15/24 15:08 Hgb 10.90 g/dL (11.27-16.99) L 11/15/24 15:08 Hct 33.6 % (36-47) L 11/15/24 15:08 MCV 83.0 fl (85-98) L 11/15/24 15:08 MCH 26.9 pg (27-33) L 11/15/24 15:08 MCHC 32.4 g/dL (30-55) 11/15/24 15:08 RDW 14.0 % (12.1-15.1) 11/15/24 15:08 Plt Count 228 10^3/cmm (157-399) 11/15/24 15:08 MPV 11.8 fL (7.4-10.4) H 11/15/24 15:08 Neut % (Auto) 64.8 % 11/15/24 02:50 Lymph % (Auto) 30.4 % 11/15/24 02:50 Grayson % (Auto) 3.5 % 11/15/24 02:50 Eos % (Auto) 0.3 % 11/15/24 02:50 Baso % (Auto) 0.3 % 11/15/24 02:50 Neut # (Auto) 7.49 10^3/uL (1.8-7.7) 11/15/24 02:50 Lymph # (Auto) 3.5 10^3/uL (0.8-4.8) 11/15/24 02:50 Grayson # (Auto) 0.4 10^3/uL (0.2-0.9) 11/15/24 02:50 Eos # (Auto) 0.0 10^3/uL (0.0-0.8) 11/15/24 02:50 Baso # (Auto) 0.0 10^3/uL (0.0-0.1) 11/15/24 02:50 Nucleated RBC % (auto) 0 % 11/15/24 02:50 Nucleated RBCs # 0.0 /100WBC 11/15/24 02:50 Blood Type O Positive 11/15/24 02:50 Rho(D) Type Rh positive 11/15/24 02:50 Antibody Screen Negative 11/15/24 02:50 Vitals Last Vital Signs Temp 97.9 F 11/16/24 05:17 Pulse 72 11/16/24 05:17 Resp 16 11/16/24 05:17 BP 116/65 11/16/24 05:17 Pulse Ox 96 11/16/24 05:17 O2 Del Method Room Air 11/16/24 05:17 Results Labs OB ([facility]): Blood Type O Positive 11/15/24 Antibody Screen Negative 11/15/24 Hct 33.6 % (36-47) L 11/15/24 Hgb 10.90 g/dL (11.27-16.99) L 11/15/24 Rho(D) Type Rh positive 11/15/24 Plt Count 228 10^3/cmm (157-399) 11/15/24 TSH 1.91 uIU/mL (0.27-4.20) 01/18/24 Free T4 1.37 ng/dL (0.82-1.77) 01/18/24 Ser , Semi-Qnt 1.00 mIU/mL 01/18/24 Pap Smear Interpret See note 01/18/24 Free Testosterone 2.0 pg/mL (0.2-5.0) 01/18/24 Discharge Plan Discharge Patient Disposition: Home Condition: Stable Prescriptions: New ibuprofen 800 mg Tablet 800 mg PO TID Qty: 45 0RF Vitamin 27 mg iron- 800 mcg Tablet 1 tab PO DAILY Qty: 90 0RF Discharge Orders: Discharge Order (Routine); Ordered 11/16/24 Ordered By: Seven Platt Referrals: Seven Platt MD [Physician] - 12/27/24 9:50 am Discharge Diet: Usual diet Discharge Activity: Limit activity as instructed Patient Instructions: Depression (DC), Opioid Safety (DC), Preeclampsia and Eclampsia After Delivery (GEN), Hemorrhage (DC), OB Discharge Report, OB Food/Drug Interaction Guide, OB Care at Home, Opioid Safety, OB Vaginal Deliveries, Abnormal Bleeding Discharge Attestations TWISTING FRAME CHANGER Time Spent in Discharge Care*: less than 30 min Coding Level of Care Code Acute Code for Chg Fwd Diagnoses Spontaneous vaginal delivery O80
[2024-11-16 09:00] VITALS: BP 97/55; PULSE 74; RESP 15; TEMP 36.8; O2SAT 100
[2024-11-16] MEDS: PRENATAL VIT NO.130/IRON/FOLIC 1 EACH TABLET PO (09:00)
[2024-11-16] MEDS: docusate sodium 100 mg Capsule PO (09:00)
[2024-11-16] MEDS: ibuprofen 800 mg tablet PO (09:00)
[2024-11-16 13:35] VITALS: BP 101/60; PULSE 71; RESP 16; TEMP 36.6; TEMP 36.7; O2SAT 100
== END 2024-11-16 13:45 | disposition home or self-care (01) | DRG 807 ==
LOC: OPOB 02:44 → OBGYN 02:44
PROVIDERS: Admitting Provider Family Medicine; PCP Electrodiagnostic Medicine; Visit Provider Family Medicine
DX: O99.824 Streptococcus B carrier state complicating childbirth (principal); Z37.0 Single live birth; O69.81X0 Labor and delivery complicated by cord around neck, without compression, not applicable or unspecified; Z3A.38 38 weeks gestation of pregnancy
CPT/HCPCS: 36415; 59025; 59409; 85025; 85027; 86850; 86900; 99211; J9999